=== PATIENT | male | born 1970 | race African-American/Black ===

== ENCOUNTER 2019-09-12 08:28 | Emergency (ER) | payer MEDICAID ==
[~2019-09-12] VITALS: Ht 190.5 cm; Wt 130.0 kg
[2019-09-12 09:22] VITALS: BP 157/96
== END 2019-09-12 09:26 | disposition home or self-care (01) ==
LOC: ER 08:28
DX: S50.861A Insect bite (nonvenomous) of right forearm, initial encounter (principal); L03.113 Cellulitis of right upper limb; W57.XXXA Bitten or stung by nonvenomous insect and other nonvenomous arthropods, initial encounter; Y93.89 Activity, other specified; Y92.89 Other specified places as the place of occurrence of the external cause; Y99.8 Other external cause status
CPT/HCPCS: 99283